=== PATIENT | male | born 1965 | race Caucasian/White ===

== ENCOUNTER → 2024-11-17 | Day surgery (SDC) | payer OTHER ==
[~2024-11-17] MED LIST: FENTANYL CITRATE/PF 100MCG/2 ML INJ ONE; GLUCAGON FOR INJ 1 MG VIAL ONE; LACTATED RINGER'S 1,000 ML ONE; LIDOCAINE HCL 2% LOCAL INJ 5 ML SDV VIAL INJ ONE; MULTI-VITAMIN1 EACH PO; PROPOFOL IV EMULSION 50 ML IV ONE; VITAMIN C1000 MG PO
[2024-11-17 11:30] VITALS: TEMP 97.9
[2024-11-17 11:45] VITALS: BP 117/79; PULSE 77; RESP 16; O2SAT 98
== END | disposition home or self-care (01) ==
LOC: OR 08:50
PROVIDERS: ATTEND Internal Medicine Gastroenterology
DX: K59.04 Chronic idiopathic constipation (principal); Z86.0100 Personal history of colon polyps, unspecified; K57.30 Diverticulosis of large intestine without perforation or abscess without bleeding; K64.8 Other hemorrhoids; Z01.810 Encounter for preprocedural cardiovascular examination
CPT/HCPCS: 45378; 93005; J1610; J2003; J2704; J3010; J7121